=== PATIENT | male | born 1960 | race Caucasian/White ===

== ENCOUNTER 2017-02-19 18:44 | Observation (INO) | payer OTHER ==
[2017-02-19 18:55] VITALS: BMI 21.7
[2017-02-19] MEDS ORDERED: HYDROmorphone HCL CARPU-JECT 1 MG/1 ML DISP.SYRIN IVPUSH ONE (20:12)
[2017-02-19] MEDS ORDERED: diazePAM 5 MG TABLET PO ONE (20:35)
[2017-02-19] MEDS ORDERED: MINERAL OIL ENEMA 133 ML ENEMA PR ONE (20:47)
--- NOTE | 2017-02-19 20:47 | PDOC ---
History of Present Illness - General Chief Complaint: Constipation Stated Complaint: CONSTIPATION Time Seen by Provider: 02/19/17 20:11 - History of Present Illness Initial Comments: 02/19/17 20:42 CHIEF COMPLAINT: constipation HISTORY OF PRESENT ILLNESS: 57 yo M with severe developmental disability, renal insufficiancy, iron deficiency anemia, redundant colon, gastric immobility, constipation, fecal impaction, and small bowel obstruction presents to ED from [facility] with fecal impaction. Per notes patient's aide at bedside, patient went for abdominal x-ray this morning and results indicate "distal fecal impaction with stool mixed with contrast. No free air. No sign of gross pneumatosis. Patient needs to get the retained contrast mixed with stool removed." Per [facility] notes, patient was evaluated at [facility] and discharged with a plan for fecal disimpaction with "fleet mineral oil enema followed by dulcolax suppository repeated once after 6 hours, then 1/2 gallon of golytely laxative solution. if tolerates this can complete th rest of the golytely the next day" on 02/13/17. PAST MEDICAL HISTORY: Denies past medical history FAMILY HISTORY: Denies SOCIAL HISTORY: Denies tobacco, alcohol, illicit drug use. SURGICAL HISTORY: Denies ALLERGIES: No known drug allergies REVIEW OF SYSTEMS - Patient nonverbal, unable to conduct PHYSICAL EXAM General Appearance: Well-appearing, appropriately dressed. No apparent distress. HEENT: EOMI, PERRLA, normal ENT inspection, normal voice, TMs normal, pharynx normal. No conjunctival pallor. No photophobia, scleral icterus. Neck: Supple. Trachea midline. No tenderness, rigidity, carotid bruit, stridor , lymphadenopathy, or thyromegaly. Respiratory/Chest: Lungs CTAB. No shortness of breath, chest tenderness, respiratory distress, accessory muscle use. No crackles, rales, rhonchi, stridor , wheezing, dullness Cardiovascular: RRR. S1, S2. Gastrointestinal/Abdominal: Normal bowel sounds. Abdomen soft, non-distended. No tenderness or rebound tenderness. No organomegaly, pulsatile mass, guarding , hernia, hepatomegaly, splenomegaly. Rectal Exam: Large fecal bolus to rectal vault. Small flecks of dark, hard green stool to diaper. No gross blood appreciated. Musculoskeletal/Extremities: Normal inspection. FROM of all extremities, normal capillary refill. Pelvis Stable. No CVA tenderness. No tenderness to extremities, pedal edema, swelling, erythema or deformity. Integumentary: Appropriate color, dry, warm. 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 Fully oriented, alert. Appropriate mood/affect. Motor strength 5/5. No appreciable EOM palsy, facial droop or sensory deficit. 02/20/17 00:37 Past History - Past Medical History Allergies/Adverse Reactions: Allergies Allergy/AdvReac Type Severity Reaction Status Date / Time No Known Drug Allergies Allergy Verified 02/19/17 18:55 Home Medications: Ambulatory Orders Alprazolam 0.5 mg PO TID #15 tablet 08/06/15 Ascorbic Acid [Vitamin C] 500 mg PO DAILY 08/06/15 Calcitriol [Calcitriol -] 2 capsule PO DAILY capsule 08/06/15 Docusate Sodium [Colace] 300 mg PO HS capsule 08/06/15 Folic Acid 1 mg PO DAILY tablet 08/06/15 Furosemide 40 mg PO DAILY #30 08/06/15 Lactulose 20 gm PO DAILY 08/06/15 Lamotrigine [Lamotrigine ER] 200 mg PO DAILY 08/06/15 Levetiracetam [Keppra] 500 mg PO DAILY tablet 08/06/15 Lorazepam 2 mg PO po 08/06/15 Na Phos,M-B/Na Phos,Di-Ba [Fleet Enema] 118 ml RC PRN 08/06/15 Omeprazole Magnesium 20 mg PO DAILY #30 08/06/15 Quetiapine Fumarate 300 mg PO AM tablet 08/06/15 Quetiapine Fumarate 400 mg PO HS tablet 08/06/15 Sennosides [Senna] 8.6 mg PO DAILY capsule 08/06/15 Zonisamide 100 mg PO DAILY capsule 08/06/15 Anemia: (AZOTEMIA) GI Disorders: Yes (CONSTIPATION) Disorders: Yes (RENAL INSUFFICIENY) Seizures: Yes Other medical history: INTELECTUAL DEVELOPMENT DELAY, PRESBYOPIA - Suicide/Smoking/Psychosocial Hx Smoking History: Never smoked Hx Alcohol Use: No Drug/Substance Use Hx: No Substance Use Type: None *Physical Exam - Vital Signs Last Vital Signs Temp Pulse Resp BP Pulse Ox 97.9 F 75 16 121/53 95 02/19/17 18:48 02/19/17 18:48 02/19/17 18:48 02/19/17 18:48 02/19/17 18:48 Medical Decision Making - Medical Decision Making 02/19/17 22:55 57 yo M with severe developmental disability, renal insufficiency, iron deficiency anemia, redundant colon, gastric immobility, constipation, fecal impaction, and small bowel obstruction presents to ED from [facility] with fecal impaction. -Digital/manual disimpaction attempted - large bolus of fecal matter appreciated but unable to remove or break up any pieces -2 saline enemas administered and patient placed on commode, patient unable to follow instructions to push as he is nonverbal and delayed Patient will require more aggressive disimpaction. Discussed case with patient' s PCP Tom, will admit to inpatient services for GI consult. Per Dr. Santos's request, discussed case with GI MD Carl (sleeve ironer for Lansylvia) . Will give oral lactulose. *DC/Admit/Observation/Transfer Diagnosis at time of Disposition: Fecal impaction in rectum - Discharge Dispostion Admit: Yes - Referrals Referrals: Nora Santos MD [Primary Care Provider] -
[2017-02-19] MEDS ORDERED: diazePAM 5 MG TABLET ONE (20:56)
[2017-02-19] MEDS ORDERED: LACTULOSE 20 GM/30 ML UDC (FOR ORAL USE ONLY) PO ONE (23:53)
[2017-02-20] MEDS ORDERED: LACTULOSE 20 GM/30 ML UDC (FOR ORAL USE ONLY) ONE (01:45)
[2017-02-20 02:33] LABS: MCH 33.3 pg (25.7-33.7); MCHC 33.1 g/dl (32.0-35.9); MEAN CELL VOLUME 100.6 fl (80-96); MEAN PLT VOLUME 9.7 fl (7.5-11.1); PLATELET COUNT 184 K/MM3 (134-434); RDW 13.6 % (11.9-15.9); WHITE BLOOD COUNT 14.4 K/mm3 (4.0-10.0)
[2017-02-20 02:50] LABS: INR 1.1 (0.82-1.09); PROTHROMBIN TIME (PATIENT) 12.4 SEC (9.98-11.88)
[2017-02-20 03:03] LABS: ALBUMIN 3.6 g/dl (3.4-5.0); ANION GAP 15 (8-16); CALCIUM 8.9 mg/dL (8.5-10.1); CO2 21 mmol/L (21-32); CREATININE 2.3 mg/dL (0.7-1.3); GLUCOSE,RANDOM 163 mg/dL (74-106); SGOT/AST 15 U/L (15-37); SGPT/ALT 17 U/L (12-78)
[2017-02-20 03:04] LABS: ALK PHOS 140 U/L (45-117); TOT PROT 7.1 g/dl (6.4-8.2)
[2017-02-20 07:18] LABS: TOTAL CELLS COUNTED 100
[2017-02-20] MEDS ORDERED: MINERAL OIL ENEMA 133 ML ENEMA PR ONE (10:24)
[2017-02-20] MEDS: POLYETHYLENE GLYCOL 3350 119 GM BTL PO SCH ×2 (11:50→21:13)
--- NOTE | 2017-02-20 12:50 | HP ---
Admitting History and Physical - Primary Care Physician PCP: Nora Santos - Admission Chief Complaint: abdominal pain History of Present Illness: ER HISTORY - History of Present Illness Initial Comments: 02/19/17 20:42 CHIEF COMPLAINT: constipation HISTORY OF PRESENT ILLNESS: 57 yo M with severe developmental disability, renal insufficiency, iron deficiency anemia, redundant colon, gastric immobility, constipation, fecal impaction, and small bowel obstruction presents to ED from [facility] with fecal impaction. Per notes patient's aide at bedside, patient went for abdominal x-ray this morning and results indicate "distal fecal impaction with stool mixed with contrast. No free air. No sign of gross pneumatosis. Patient needs to get the retained contrast mixed with stool removed." Per [facility] notes, patient was evaluated at [facility] and discharged with a plan for fecal disimpaction with "fleet mineral oil enema followed by dulcolax suppository repeated once after 6 hours, then 1/2 gallon of golytely laxative solution. if tolerates this can complete th rest of the golytely the next day" on 02/13/17. PAST MEDICAL HISTORY: Denies past medical history FAMILY HISTORY: Denies SOCIAL HISTORY: Denies tobacco, alcohol, illicit drug use. SURGICAL HISTORY: Denies Pt seen and examined Severe mental retardation, has episodes of fecal impaction. Had been disimpacted in ER, but still has stool in vault per ER . Pt kept NPO here in ER . 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, Other (mental retardation) Renal/: Yes: Renal Inusuff - Smoking History Smoking history: Never smoked - Alcohol/Substance Use Hx Alcohol Use: No Home Medications - Allergies Allergies/Adverse Reactions: Allergies Allergy/AdvReac Type Severity Reaction Status Date / Time No Known Drug Allergies Allergy Verified 02/19/17 18:55 - Home Medications Home Medications: Ambulatory Orders Ascorbic Acid [Vitamin C] 500 mg PO DAILY 08/06/15 Calcitriol [Calcitriol -] 2 capsule PO DAILY capsule 08/06/15 Docusate Sodium [Colace] 300 mg PO HS capsule 08/06/15 Lactulose 2 tbs PO DAILY 08/06/15 Lamotrigine [Lamotrigine ER] 200 mg PO BID 08/06/15 Levetiracetam [Keppra] 500 mg PO BID tablet 08/06/15 Lorazepam 2 mg PO ASDIR 08/06/15 Na Phos,M-B/Na Phos,Di-Ba [Fleet Enema] 118 ml RC PRN 08/06/15 Omeprazole Magnesium 20 mg PO DAILY #30 08/06/15 Quetiapine Fumarate 300 mg PO AM tablet 08/06/15 Quetiapine Fumarate 400 mg PO HS tablet 08/06/15 Folic Acid 1 mg PO DAILY 02/20/17 Zonisamide [Zonegran] 100 mg PO BID 02/20/17 Review of Systems Unable to obtain ROS, reason: mental retardation Physical Examination Vital Signs: Vital Signs Temperature 97.9 F 02/19/17 18:48 Pulse Rate 75 02/19/17 18:48 Respiratory Rate 16 02/19/17 18:48 Blood Pressure 121/53 02/19/17 18:48 O2 Sat by Pulse Oximetry (%) 96 02/19/17 21:50 Constitutional: Yes: No Distress Cardiovascular: Yes: Regular Rate and Rhythm Respiratory: Yes: CTA Bilaterally Gastrointestinal: Yes: Normal Bowel Sounds, Soft, Distention, Tenderness Edema: No Psychiatric: Yes: Alert Labs: CBC, BMP 02/20/17 02:23 02/20/17 02:23 Imaging - Results EKG: Image Reviewed (NSR) Problem List - Problems (1) Acute on chronic renal failure Code(s): N17.9 - ACUTE KIDNEY FAILURE, UNSPECIFIED N18.9 - CHRONIC KIDNEY DISEASE, UNSPECIFIED Qualifiers: Chronic kidney disease stage: stage 3 (moderate) (2) Epilepsy Code(s): G40.909 - EPILEPSY, UNSP, NOT INTRACTABLE, WITHOUT STATUS EPILEPTICUS (3) Fecal impaction in rectum Code(s): K56.41 - FECAL IMPACTION (4) Profound mental retardation Code(s): F73 - PROFOUND INTELLECTUAL DISABILITIES Assessment/Plan Fleet enema lactulase and miralax ordered Dulcolax suppository x 1 iv fluids may have regular food after bm keep NPO for now DVT prophlaxis-- Heparin sc
[2017-02-20] MEDS: LACTULOSE 20 GM/30 ML UDC (FOR ORAL USE ONLY) PO SCH (14:53)
[2017-02-20] MEDS: levETIRAcetam 500 MG TABLET (FP) PO SCH ×2 (14:54→21:11)
[2017-02-20] MEDS: ZONISAMIDE 100 MG CAPSULE PO SCH ×2 (14:55→21:13)
[2017-02-20] MEDS: DEXTROSE 5%-0.45% SALINE 1,000 ML IV SCH (20:15)
[2017-02-20] MEDS ORDERED: PT OWN MED DRAWER 7, Y5N ONE (21:03)
[2017-02-20] MEDS: DOCUSATE SODIUM 100 MG CAPSULE (FP) PO SCH (21:10)
[2017-02-20] MEDS: LORazepam 1 MG TABLET PO PRN (21:11)
[2017-02-20] MEDS: lamoTRIgine 100 MG TABLET (FP) PO SCH (21:12)
[2017-02-20] MEDS ORDERED: QUEtiapine FUMARATE 400 MG TABLET PO SCH (22:00)
[2017-02-21] MEDS: QUEtiapine FUMARATE 100 MG TABLET (FP) PO SCH (06:28)
[2017-02-21] MEDS ORDERED: QUEtiapine FUMARATE 300 MG TABLET PO SCH (07:00)
[2017-02-21 08:21] LABS: ANION GAP 11 (8-16); CALCIUM 8.6 mg/dL (8.5-10.1); CO2 25 mmol/L (21-32); CREATININE 1.6 mg/dL (0.7-1.3); GLUCOSE,RANDOM 109 mg/dL (74-106)
[2017-02-21] MEDS ORDERED: PT OWN MED DRAWER 7, Y5N ONE (09:54)
[2017-02-21] MEDS: LACTULOSE 20 GM/30 ML UDC (FOR ORAL USE ONLY) PO SCH (10:14)
[2017-02-21] MEDS: ASCORBIC ACID 500 MG TABLET (FP) PO SCH (10:15)
[2017-02-21] MEDS: CALCITRIOL 0.25 MCG CAPSULE (FP) PO SCH (10:15)
[2017-02-21] MEDS: levETIRAcetam 500 MG TABLET (FP) PO SCH ×2 (10:15→21:45)
[2017-02-21] MEDS: lamoTRIgine 100 MG TABLET (FP) PO SCH ×2 (10:15→21:45)
[2017-02-21] MEDS: ZONISAMIDE 100 MG CAPSULE PO SCH ×2 (10:16→21:47)
[2017-02-21] MEDS: DEXTROSE 5%-0.45% SALINE 1,000 ML IV SCH ×2 (10:25→21:43)
[2017-02-21] MEDS: POLYETHYLENE GLYCOL 3350 119 GM BTL PO SCH ×2 (12:51→21:46)
--- NOTE | 2017-02-21 12:52 | PN ---
Progress Note, Physician Chief Complaint: pt had a big bowel movement this AM He is sitting out in the ng eating fine does not appear to be in distress - Current Medication List Current Medications: Active Medications Ascorbic Acid (Vitamin C -) 500 mg PO DAILY [facility] Last Admin: 02/21/17 10:15 Dose: 500 mg Calcitriol (Rocaltrol -) 0.5 mcg PO DAILY [facility] Last Admin: 02/21/17 10:15 Dose: 0.5 mcg Docusate Sodium (Colace -) 300 mg PO HS [facility] Last Admin: 02/20/17 21:10 Dose: 300 mg Dextrose/Sodium Chloride (D5-1/2ns -) 1,000 mls @ 75 mls/hr IV ASDIR [facility] Last Admin: 02/21/17 10:25 Dose: 75 mls/hr Lactulose (Cephulac (Oral Use)) 20 gm PO DAILY [facility] Last Admin: 02/21/17 10:14 Dose: 20 gm Lamotrigine (Lamictal -) 200 mg PO BID [facility] Last Admin: 02/21/17 10:15 Dose: 200 mg Levetiracetam (Keppra -) 500 mg PO BID [facility] Last Admin: 02/21/17 10:15 Dose: 500 mg Lorazepam (Ativan -) 2 mg PO TID PRN PRN Reason: ANXIETY Last Admin: 02/20/17 21:11 Dose: 2 mg Polyethylene Glycol (Miralax (For Daily Use) -) 17 gm PO BID [facility] Last Admin: 02/20/17 21:13 Dose: 17 grams Quetiapine Fumarate (Seroquel -) 300 mg PO AM [facility] Last Admin: 02/21/17 06:28 Dose: 300 mg Quetiapine Fumarate (Seroquel -) 400 mg PO HS [facility] Zonisamide (Zonegran -) 100 mg PO BID [facility] Last Admin: 02/21/17 10:16 Dose: 100 mg - Objective Vital Signs: Vital Signs Temperature 98.5 F 02/21/17 06:18 Pulse Rate 95 H 02/21/17 06:18 Respiratory Rate 20 02/21/17 06:18 Blood Pressure 127/85 02/21/17 06:18 O2 Sat by Pulse Oximetry (%) 98 02/21/17 07:20 Constitutional: Yes: No Distress Cardiovascular: Yes: Regular Rate and Rhythm Respiratory: Yes: CTA Bilaterally Gastrointestinal: Yes: Normal Bowel Sounds, Soft, Distention, Tenderness (mild diffuse) Edema: No Psychiatric: Yes: Alert. No: Oriented Labs: CBC, BMP 02/20/17 02:23 02/21/17 06:00 INR, PTT INR 1.10 (0.82-1.09) 02/20/17 02:23 Problem List - Problems (1) Fecal impaction in rectum Code(s): K56.41 - FECAL IMPACTION (2) Profound mental retardation Code(s): F73 - PROFOUND INTELLECTUAL DISABILITIES (3) Epilepsy Code(s): G40.909 - EPILEPSY, UNSP, NOT INTRACTABLE, WITHOUT STATUS EPILEPTICUS (4) Acute on chronic renal failure Code(s): N17.9 - ACUTE KIDNEY FAILURE, UNSPECIFIED N18.9 - CHRONIC KIDNEY DISEASE, UNSPECIFIED Qualifiers: Chronic kidney disease stage: stage 3 (moderate) Assessment/Plan PLAN continue with stool softeners iv fluids creatinine better soap suds enema DVT prophylaxis-- heparin sc
[2017-02-21] MEDS ORDERED: SENNOSIDES 8.6MG TABLET (FP) PO PRN (12:53)
[2017-02-21] MEDS ORDERED: SODIUM PHOSPHATE/NA BIPHOS 133 ML ENEMA PR ONE ×2 (19:06)
--- NOTE | 2017-02-21 19:15 | CON.GI ---
Consult Consult Specialty:: consult Referred by:: Sindi Escobar md - History of Present Illness History of Present Illness: HISTORY OF PRESENT ILLNESS: 57 yo M with severe developmental disability, renal insufficiency, iron deficiency anemia, redundant colon, gastric immobility, constipation, fecal impaction, and small bowel obstruction presents to ED from [facility] with fecal impaction. Per notes patient's aide at bedside, patient went for abdominal x-ray this morning and results indicate "distal fecal impaction with stool mixed with contrast. No free air. No sign of gross pneumatosis. Patient needs to get the retained contrast mixed with stool removed." Per [facility] notes, patient was evaluated at [facility] and discharged with a plan for fecal disimpaction with "fleet mineral oil enema followed by dulcolax suppository repeated once after 6 hours, then 1/2 gallon of golytely laxative solution. if tolerates this can complete th rest of the golytely the next day" on 02/13/17. The FUA was reviewed and the patien was noted to have severe fecal impaction. 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 (mental retardation) Renal/: Yes: Renal Inusuff - Alcohol/Substance Use Hx Alcohol Use: No - Smoking History Smoking history: Never smoked Home Medications - Allergies Allergies/Adverse Reactions: Allergies Allergy/AdvReac Type Severity Reaction Status Date / Time No Known Drug Allergies Allergy Verified 02/19/17 18:55 - Home Medications Home Medications: Ambulatory Orders Ascorbic Acid [Vitamin C] 500 mg PO DAILY 08/06/15 Calcitriol [Calcitriol -] 2 capsule PO DAILY capsule 08/06/15 Docusate Sodium [Colace] 300 mg PO HS capsule 08/06/15 Lactulose 2 tbs PO DAILY 08/06/15 Lamotrigine [Lamotrigine ER] 200 mg PO BID 08/06/15 Levetiracetam [Keppra] 500 mg PO BID tablet 08/06/15 Lorazepam 2 mg PO ASDIR 08/06/15 Na Phos,M-B/Na Phos,Di-Ba [Fleet Enema] 118 ml RC PRN 08/06/15 Omeprazole Magnesium 20 mg PO DAILY #30 08/06/15 Quetiapine Fumarate 300 mg PO AM tablet 08/06/15 Quetiapine Fumarate 400 mg PO HS tablet 08/06/15 Folic Acid 1 mg PO DAILY 02/20/17 Zonisamide [Zonegran] 100 mg PO BID 02/20/17 Physical Exam-GI Vital Signs: Vital Signs Temperature 97.5 F L 02/21/17 15:36 Pulse Rate 104 H 02/21/17 15:36 Respiratory Rate 18 02/21/17 15:36 Blood Pressure 117/73 02/21/17 15:36 O2 Sat by Pulse Oximetry (%) 95 02/21/17 15:00 Constitutional: Yes: Well Nourished Eyes: Yes: Conjunctiva Clear HENT: Yes: Atraumatic Cardiovascular: Yes: Regular Rate and Rhythm Respiratory: Yes: CTA Bilaterally Gastrointestinal Inspection: Yes: Distention ...Palpate: Yes: Soft. No: Firm/Rigid, Guarding, Hepatomegaly, Pulsatile Mass, Splenomegaly, Tenderness, Epigastium ...Rectal Exam: Yes: Other (fecal impaction, disimpacted, 4 fleet enemas given) Labs: CBC, BMP 02/20/17 02:23 02/21/17 06:00 INR, PTT INR 1.10 (0.82-1.09) 02/20/17 02:23 Imaging - Results Chest X-ray: Image Reviewed Problem List - Problems (1) Fecal impaction in rectum Assessment/Plan: R> continus fleet enemas to prevent small owel obstruction Code(s): K56.41 - FECAL IMPACTION
[2017-02-21] MEDS: LORazepam 1 MG TABLET PO PRN (21:44)
[2017-02-21] MEDS: DOCUSATE SODIUM 100 MG CAPSULE (FP) PO SCH (21:44)
[2017-02-21] MEDS: QUEtiapine FUMARATE 200 MG TABLET PO SCH (21:46)
[2017-02-22] MEDS: QUEtiapine FUMARATE 100 MG TABLET (FP) PO SCH (06:20)
[2017-02-22] MEDS ORDERED: PT OWN MED DRAWER 7, Y5N ONE ×2 (06:48→10:40)
[2017-02-22 08:47] LABS: MCH 32.9 pg (25.7-33.7); MCHC 33.1 g/dl (32.0-35.9); MEAN CELL VOLUME 99.5 fl (80-96); MEAN PLT VOLUME 9.9 fl (7.5-11.1); PLATELET COUNT 157 K/MM3 (134-434)
[2017-02-22 09:12] LABS: ANION GAP 7 (8-16); CALCIUM 8.2 mg/dL (8.5-10.1); CO2 27 mmol/L (21-32); CREATININE 1.7 mg/dL (0.7-1.3); GLUCOSE,RANDOM 94 mg/dL (74-106)
[2017-02-22] MEDS: LACTULOSE 20 GM/30 ML UDC (FOR ORAL USE ONLY) PO SCH (10:43)
[2017-02-22] MEDS: POLYETHYLENE GLYCOL 3350 119 GM BTL PO SCH ×2 (10:43→22:01)
[2017-02-22] MEDS: ASCORBIC ACID 500 MG TABLET (FP) PO SCH (10:43)
[2017-02-22] MEDS: CALCITRIOL 0.25 MCG CAPSULE (FP) PO SCH (10:43)
[2017-02-22] MEDS: levETIRAcetam 500 MG TABLET (FP) PO SCH ×2 (10:43→22:01)
[2017-02-22] MEDS: lamoTRIgine 100 MG TABLET (FP) PO SCH ×2 (10:44→22:01)
[2017-02-22] MEDS: ZONISAMIDE 100 MG CAPSULE PO SCH ×2 (10:45→22:02)
--- NOTE | 2017-02-22 11:19 | PN ---
Progress Note (short form) - Note Progress Note: Current Medications no distress happy eating good had 2 big bm yesterday and 1 today Generic Name Dose Route Start Last Admin Trade Name Freq PRN Reason Stop Dose Admin Ascorbic Acid 500 mg 02/21/17 10:00 02/22/17 10:43 Vitamin C - PO 500 mg DAILY [facility] Administration Calcitriol 0.5 mcg 02/21/17 10:00 02/22/17 10:43 Rocaltrol - PO 0.5 mcg DAILY [facility] Administration Docusate Sodium 300 mg 02/20/17 22:00 02/21/17 21:44 Colace - PO 300 mg HS [facility] Administration Lactulose 20 gm 02/20/17 11:30 02/22/17 10:43 Cephulac (Oral Use) PO 20 gm DAILY [facility] Administration Lamotrigine 200 mg 02/20/17 22:00 02/22/17 10:44 Lamictal - PO 200 mg BID [facility] Administration Levetiracetam 500 mg 02/20/17 11:30 02/22/17 10:43 Keppra - PO 500 mg BID [facility] Administration Lorazepam 2 mg 02/20/17 10:21 02/21/17 21:44 Ativan - PO 2 mg TID PRN Administration ANXIETY Polyethylene Glycol 17 gm 02/20/17 10:30 02/22/17 10:43 Miralax (For Daily Use) - PO 17 grams BID [facility] Administration Quetiapine Fumarate 300 mg 02/21/17 07:00 02/22/17 06:20 Seroquel - PO 300 mg AM [facility] Administration Quetiapine Fumarate 400 mg 02/21/17 22:00 02/21/17 21:46 Seroquel - PO 400 mg HS [facility] Administration Senna 2 tab 02/21/17 12:53 Senna - PO HS PRN CONSTIPATION Zonisamide 100 mg 02/20/17 12:00 02/22/17 10:45 Zonegran - PO 100 mg BID [facility] Administration Vital Signs - 24 hr 02/21/17 02/21/17 02/21/17 15:00 15:36 18:00 Temperature 97.5 F L 97.5 F L Pulse Rate 104 H 96 H Respiratory 18 18 18 Rate Blood Pressure 117/73 122/82 O2 Sat by Pulse 95 Oximetry (%) 02/21/17 02/21/17 02/22/17 22:00 23:00 02:00 Temperature 98.7 F 97.9 F Pulse Rate 98 H 99 H Respiratory 18 18 18 Rate Blood Pressure 118/82 125/80 O2 Sat by Pulse 95 Oximetry (%) 02/22/17 02/22/17 02/22/17 05:40 06:55 10:00 Temperature 97.6 F 98.1 F 98.1 F Pulse Rate 94 H 93 H 92 H Respiratory 18 20 20 Rate Blood Pressure 121/83 139/78 129/79 O2 Sat by Pulse 98 Oximetry (%) Laboratory Results - last 24 hr 02/22/17 02/22/17 06:00 06:00 WBC 7.0 D RBC 3.47 L Hgb 11.4 L D Hct 34.6 L MCV 99.5 H MCH 32.9 MCHC 33.1 RDW 13.0 Plt Count 157 MPV 9.9 Sodium 145 Potassium 3.5 Chloride 111 H Carbon Dioxide 27 Anion Gap 7 L BUN 34 H D Creatinine 1.7 H Random Glucose 94 Calcium 8.2 L S1 S2 RRR Lungs clear ABd- softer today, ND, NT no edema PLAN GI eval noted disimpacted yesterday as well by GI having BM no vomiting Xray abdomen pending dc plan for tomorrow Problem List - Problems (1) Acute on chronic renal failure Code(s): N17.9 - ACUTE KIDNEY FAILURE, UNSPECIFIED N18.9 - CHRONIC KIDNEY DISEASE, UNSPECIFIED Qualifiers: Chronic kidney disease stage: stage 3 (moderate) (2) Epilepsy Code(s): G40.909 - EPILEPSY, UNSP, NOT INTRACTABLE, WITHOUT STATUS EPILEPTICUS (3) Fecal impaction in rectum Code(s): K56.41 - FECAL IMPACTION (4) Profound mental retardation Code(s): F73 - PROFOUND INTELLECTUAL DISABILITIES
[2017-02-22] MEDS ORDERED: SODIUM PHOSPHATE/NA BIPHOS 133 ML ENEMA PR ONE (18:13)
[2017-02-22] MEDS: SODIUM PHOSPHATE/NA BIPHOS 133 ML ENEMA PR SCH (20:00)
[2017-02-22] MEDS: DOCUSATE SODIUM 100 MG CAPSULE (FP) PO SCH (22:00)
[2017-02-22] MEDS: LORazepam 1 MG TABLET PO PRN (22:01)
[2017-02-22] MEDS: QUEtiapine FUMARATE 200 MG TABLET PO SCH (22:01)
[2017-02-23] MEDS: SODIUM PHOSPHATE/NA BIPHOS 133 ML ENEMA PR SCH ×5 (01:02→16:53)
[2017-02-23] MEDS ORDERED: PT OWN MED DRAWER 7, Y5N ONE ×2 (06:22→10:35)
[2017-02-23] MEDS: QUEtiapine FUMARATE 100 MG TABLET (FP) PO SCH (06:42)
--- NOTE | 2017-02-23 08:42 | PN ---
Progress Note (short form) - Note Progress Note: pt sitting in chair comfortable chart reviewed had bm - still abd distended fua - noted- significant stool/ impaction Vital Signs Temp 97.9 F 02/23/17 05:00 Pulse 86 02/23/17 05:00 Resp 18 02/23/17 05:00 BP 116/75 02/23/17 05:00 Pulse Ox 98 02/23/17 05:54 Intake & Output 02/22/17 02/22/17 02/23/17 11:59 23:59 11:59 Intake Total 650 1600 400 Balance 650 1600 400 Intake: IV 450 D5-1/2Ns - 1,000 ml @ 75 450 mls/hr IV ASDIR [facility] Rx#: [id number] Oral 200 1600 400 Other: Voiding Method Incontinent Incontinent Incontinent # Unmeasured Voids Void 1 3 Bowel Movement Yes Yes Yes # Bowel Movements 2 2 4 Laboratory Last Values WBC 7.0 K/mm3 (4.0-10.0) D 02/22/17 06:00 RBC 3.47 M/mm3 (4.00-5.60) L 02/22/17 06:00 Hgb 11.4 GM/dL (11.7-16.9) L D 02/22/17 06:00 Hct 34.6 % (35.4-49) L 02/22/17 06:00 MCV 99.5 fl (80-96) H 02/22/17 06:00 MCH 32.9 pg (25.7-33.7) 02/22/17 06:00 MCHC 33.1 g/dl (32.0-35.9) 02/22/17 06:00 RDW 13.0 % (11.9-15.9) 02/22/17 06:00 Plt Count 157 K/MM3 (134-434) 02/22/17 06:00 MPV 9.9 fl (7.5-11.1) 02/22/17 06:00 Total Counted 100 02/20/17 02:23 Neutrophils % 83.0 % (42.8-82.8) H 02/20/17 02:23 Band Neuts % (Manual) 6 % (0-10) 02/20/17 02:23 Lymphocytes % 6.0 % (8-40) L 02/20/17 02:23 Monocytes % 5.0 % (3.8-10.2) 02/20/17 02:23 PT with INR 12.40 SEC (9.98-11.88) H 02/20/17 02:23 INR 1.10 (0.82-1.09) 02/20/17 02:23 PTT (Actin FS) 29.6 SECONDS (26.9-34.4) 02/20/17 02:23 Sodium 145 mmol/L (136-145) 02/22/17 06:00 Potassium 3.5 mmol/L (3.5-5.1) 02/22/17 06:00 Chloride 111 mmol/L (98-107) H 02/22/17 06:00 Carbon Dioxide 27 mmol/L (21-32) 02/22/17 06:00 Anion Gap 7 (8-16) L 02/22/17 06:00 BUN 34 mg/dL (7-18) H D 02/22/17 06:00 Creatinine 1.7 mg/dL (0.7-1.3) H 02/22/17 06:00 Creat Clearance w eGFR 29.46 (>60) 02/20/17 02:23 Random Glucose 94 mg/dL (74-106) 02/22/17 06:00 Calcium 8.2 mg/dL (8.5-10.1) L 02/22/17 06:00 Total Bilirubin 1.0 mg/dL (0.2-1.0) D 02/20/17 02:23 AST 15 U/L (15-37) D 02/20/17 02:23 ALT 17 U/L (12-78) 02/20/17 02:23 Alkaline Phosphatase 140 U/L (45-117) H 02/20/17 02:23 Total Protein 7.1 g/dl (6.4-8.2) 02/20/17 02:23 Albumin 3.6 g/dl (3.4-5.0) 02/20/17 02:23 Stool Occult Blood Negative (NEGATIVE) 02/20/17 04:00 Blood Type O POSITIVE 02/20/17 04:00 Antibody Screen Negative 02/20/17 04:00 Active Medications Ascorbic Acid (Vitamin C -) 500 mg PO DAILY [facility] Last Admin: 02/22/17 10:43 Dose: 500 mg Calcitriol (Rocaltrol -) 0.5 mcg PO DAILY [facility] Last Admin: 02/22/17 10:43 Dose: 0.5 mcg Docusate Sodium (Colace -) 300 mg PO HS [facility] Last Admin: 02/22/17 22:00 Dose: 300 mg Lactulose (Cephulac (Oral Use)) 20 gm PO DAILY [facility] Last Admin: 02/22/17 10:43 Dose: 20 gm Lamotrigine (Lamictal -) 200 mg PO BID [facility] Last Admin: 02/22/17 22:01 Dose: 200 mg Levetiracetam (Keppra -) 500 mg PO BID [facility] Last Admin: 02/22/17 22:01 Dose: 500 mg Lorazepam (Ativan -) 2 mg PO TID PRN PRN Reason: ANXIETY Last Admin: 02/22/17 22:01 Dose: 2 mg Polyethylene Glycol (Miralax (For Daily Use) -) 17 gm PO BID [facility] Last Admin: 02/22/17 22:01 Dose: 17 grams Quetiapine Fumarate (Seroquel -) 300 mg PO AM [facility] Last Admin: 02/23/17 06:42 Dose: 300 mg Quetiapine Fumarate (Seroquel -) 400 mg PO HS [facility] Last Admin: 02/22/17 22:01 Dose: 400 mg Senna (Senna -) 2 tab PO HS PRN PRN Reason: CONSTIPATION Sodium Phosphate (Fleet Adult Rectal Enema -) 133 ml ND Q4H [facility] Stop: 02/23/17 16:01 Last Admin: 02/23/17 05:00 Dose: 133 ml Zonisamide (Zonegran -) 100 mg PO BID [facility] Last Admin: 02/22/17 22:02 Dose: 100 mg Physical Exam, Awake/ comfortable S1 S2 RRR Lungs clear ABd- form no edema PLAN Continue Aggressive Regime today. monitor if better--dc plan for tomorrow . discussed with nursing staff/ case briefer. Need Aggressive bowel regime in senior living after discharge Problem List - Problems (1) Acute on chronic renal failure Code(s): N17.9 - ACUTE KIDNEY FAILURE, UNSPECIFIED N18.9 - CHRONIC KIDNEY DISEASE, UNSPECIFIED Qualifiers: Chronic kidney disease stage: stage 3 (moderate) (2) Epilepsy Code(s): G40.909 - EPILEPSY, UNSP, NOT INTRACTABLE, WITHOUT STATUS EPILEPTICUS (3) Fecal impaction in rectum Code(s): K56.41 - FECAL IMPACTION (4) Profound mental retardation Code(s): F73 - PROFOUND INTELLECTUAL DISABILITIES
[2017-02-23] MEDS: POLYETHYLENE GLYCOL 3350 119 GM BTL PO SCH ×2 (11:14→23:00)
[2017-02-23] MEDS: CALCITRIOL 0.25 MCG CAPSULE (FP) PO SCH (11:14)
[2017-02-23] MEDS: ASCORBIC ACID 500 MG TABLET (FP) PO SCH (11:14)
[2017-02-23] MEDS: levETIRAcetam 500 MG TABLET (FP) PO SCH ×2 (11:14→22:57)
[2017-02-23] MEDS: ZONISAMIDE 100 MG CAPSULE PO SCH ×2 (11:14→22:56)
[2017-02-23] MEDS: lamoTRIgine 100 MG TABLET (FP) PO SCH ×2 (11:14→22:57)
[2017-02-23] MEDS: LACTULOSE 20 GM/30 ML UDC (FOR ORAL USE ONLY) PO SCH (11:14)
--- NOTE | 2017-02-23 17:37 | PN ---
GI Progress Note Subjective: Patient appears comfortable Just disimpacted by his nurse Beverley. Significant amount of stool removed. - Objective Vital Signs: Vital Signs Temperature 96.8 F L 02/23/17 14:45 Pulse Rate 107 H 02/23/17 14:45 Respiratory Rate 18 02/23/17 14:45 Blood Pressure 137/87 02/23/17 14:45 O2 Sat by Pulse Oximetry (%) 98 02/23/17 05:54 Constitutional: Well Nourished Cardiovascular: Yes: Regular Rate and Rhythm Respiratory: Yes: CTA Bilaterally ...Auscultate: Yes: Normoactive Bowel Sounds ...Palpate: Yes: Soft Labs: CBC, BMP 02/22/17 06:00 02/22/17 06:00 INR, PTT INR 1.10 (0.82-1.09) 02/20/17 02:23 Assessment/Plan Abdomen decompressed. Large amount of stool removed and patient clinically improved. Would continue enemas for now and consider d/c if patient continues to improve He will need an aggressive bowel regimen as an opt including Miralax, dulcolax and enemas periodically
[2017-02-23] MEDS: DOCUSATE SODIUM 100 MG CAPSULE (FP) PO SCH (22:54)
[2017-02-23] MEDS: QUEtiapine FUMARATE 200 MG TABLET PO SCH (22:56)
[2017-02-24 04:49] VITALS: PULSE 101
[2017-02-24] MEDS: QUEtiapine FUMARATE 100 MG TABLET (FP) PO SCH (06:17)
[2017-02-24] MEDS ORDERED: PT OWN MED DRAWER 7, Y5N ONE (10:47)
--- NOTE | 2017-02-24 10:54 | DS ---
Physical Examination Vital Signs: Vital Signs Temperature 97.9 F 02/24/17 07:00 Pulse Rate 101 H 02/24/17 03:00 Respiratory Rate 20 02/24/17 07:00 Blood Pressure 120/73 02/24/17 07:00 O2 Sat by Pulse Oximetry (%) 97 02/23/17 15:00 Constitutional: Yes: No Distress, Calm Cardiovascular: Yes: Regular Rate and Rhythm Respiratory: Yes: CTA Bilaterally Gastrointestinal: Yes: Normal Bowel Sounds, Soft. No: Distention, Tenderness Edema: No Labs: CBC, BMP 02/22/17 06:00 02/22/17 06:00 Discharge Summary Reason For Visit: FECAL IMPACTION IN RECTUM Current Active Problems Acute on chronic renal failure (Acute) Epilepsy (Acute) Fecal impaction in rectum (Acute) Profound mental retardation (Acute) Hospital Course: Admitted for fecal impaction No vomiting acute on chronic renal failure Pt was on IV fluids He was disimpacted in ER and also on the floors by GI As per GI, he will need a continuous bowel regimen He is now moving his bowels meds reconciled no distress abdomen is now soft clinically better stable for discharge Condition: Improved - Instructions Referrals: Nora Santos MD [Primary Care Provider] - Disposition: [facility] - Home Medications Comprehensive Discharge Medication List: Ambulatory Orders Ascorbic Acid [Vitamin C] 500 mg PO DAILY 08/06/15 Calcitriol [Calcitriol -] 2 capsule PO DAILY capsule 08/06/15 Docusate Sodium [Colace] 300 mg PO HS capsule 08/06/15 Lactulose 2 tbs PO DAILY 08/06/15 Lamotrigine [Lamotrigine ER] 200 mg PO BID 08/06/15 Levetiracetam [Keppra] 500 mg PO BID tablet 08/06/15 Lorazepam 2 mg PO ASDIR 08/06/15 Omeprazole Magnesium 20 mg PO DAILY #30 08/06/15 Quetiapine Fumarate 300 mg PO AM tablet 08/06/15 Quetiapine Fumarate 400 mg PO HS tablet 08/06/15 Folic Acid 1 mg PO DAILY 02/20/17 Zonisamide [Zonegran] 100 mg PO BID 02/20/17 Sennosides [Senna -] 2 tab PO HS PRN #90 tablet 02/22/17 Sodium Phosphate/Na Biphos [Fleet Adult Rectal Enema -] 133 ml DE BID #120 ml 10 /19/17
[2017-02-24] MEDS: CALCITRIOL 0.25 MCG CAPSULE (FP) PO SCH (11:22)
[2017-02-24] MEDS: ASCORBIC ACID 500 MG TABLET (FP) PO SCH (11:22)
[2017-02-24] MEDS: levETIRAcetam 500 MG TABLET (FP) PO SCH (11:22)
[2017-02-24] MEDS: POLYETHYLENE GLYCOL 3350 119 GM BTL PO SCH (11:22)
[2017-02-24] MEDS: LACTULOSE 20 GM/30 ML UDC (FOR ORAL USE ONLY) PO SCH (11:22)
[2017-02-24] MEDS: lamoTRIgine 100 MG TABLET (FP) PO SCH (11:22)
[2017-02-24] MEDS: ZONISAMIDE 100 MG CAPSULE PO SCH (11:22)
[2017-02-24 12:36] VITALS: BP 105/69; TEMP 98.4
== END 2017-02-24 13:53 ==
LOC: JER 18:44 → INTOOBSV 23:16 → JERBED 23:16 → J8W 02-20 16:31
PROVIDERS: ADMIT Internal Medicine; ATTEND Internal Medicine
DX: K56.41 Fecal impaction (principal); N17.9 Acute kidney failure, unspecified; N18.9 Chronic kidney disease, unspecified; G40.909 Epilepsy, unspecified, not intractable, without status epilepticus; F73 Profound intellectual disabilities; D50.9 Iron deficiency anemia, unspecified; Q43.8 Other specified congenital malformations of intestine; K59.8 Other specified functional intestinal disorders
CPT/HCPCS: 36415; 74000-TC; 74020-TC; 80048; 80053; 82272; 82728; 83540; 83550; 85025; 85027; 85610; 85730; 86850; 86900; 86901; 99284-25; G0378

== ENCOUNTER 2024-02-02 08:33 | Inpatient (IN) | payer OTHER ==
[2024-02-02] MEDS ORDERED: ACETAMINOPHEN INJECTION 100 ML ONE (09:23)
[2024-02-02] MEDS: ACETAMINOPHEN 1000 MG/100 ML BAG IVPB ONE (09:38)
[2024-02-02 10:03] LABS: VENOUS BASE EXCESS 2.1 mmol/L (-2-2); VENOUS O2 SATURATION 69.1 % (70-80); VENOUS PCO2 42.7 mmHg (38-52); VENOUS PH 7.418 (7.310-7.410)
[2024-02-02] MEDS ORDERED: VANCOMYCIN 1 GRAM (PRE-DOCKED) 1,000 MG/250 ML BAG IVPB ONE (10:20)
[2024-02-02] MEDS ORDERED: PIPERACILLIN/TAZOB 4.5 GM 4.5 GM/100 ML BAG IVPB ONE (10:20)
[2024-02-02 10:24] LABS: LACTIC ACID 3.8 mmol/L (0.4-2.0)
[2024-02-02 10:27] LABS: HEMATOCRIT 37.1 % (35.4-49); HEMOGLOBIN 11.8 GM/dL (11.7-16.9); INR 1.04 (0.83-1.09); MCH 34.5 pg (25.7-33.7); MCHC 31.8 g/dl (32.0-35.9); MEAN CELL VOLUME 108.5 fl (80-96); MEAN PLT VOLUME 10.8 fl (7.5-11.1); PLATELET COUNT 203 10^3/uL (134-434); PROTHROMBIN TIME (PATIENT) 11.9 SEC (9.7-13.0); RBC 3.42 M/mm3 (4.00-5.60); RDW 22.2 % (11.9-15.9); WHITE BLOOD COUNT 20.3 K/mm3 (4.0-10.0)
[2024-02-02] MEDS: LACTATED RINGERS SOLUTION 1000 ML INFUS.BAG IV ONE ×3 (10:28→12:09)
[2024-02-02 10:29] LABS: ACTIVATED PTT 25.1 SECONDS (25.2-36.5)
[2024-02-02 10:40] LABS: CHLORIDE 109 mmol/L (98-107); POTASSIUM 3.3 mmol/L (3.5-5.1); SODIUM 148 mmol/L (136-145)
[2024-02-02 10:42] LABS: ANION GAP 12 mmol/L (4-13); CALCIUM 9.3 mg/dL (8.5-10.1); CO2 28 mmol/L (21-32)
[2024-02-02 10:43] LABS: GLUCOSE,RANDOM 139 mg/dL (74-106)
[2024-02-02 10:45] LABS: SGPT/ALT 21 U/L (13-61)
[2024-02-02 10:46] LABS: CREATININE 3.6 mg/dL (0.55-1.3); SGOT/AST 112 U/L (15-37)
[2024-02-02 10:47] LABS: BILIRUBIN,TOTAL 0.3 mg/dL (0.2-1); TOT PROT 5.5 g/dl (6.4-8.2)
[2024-02-02 10:48] LABS: ALK PHOS 77 U/L (45-117)
[2024-02-02] MEDS: PIPERACILLIN/TAZOB 4.5 GM 4.5 GM in DEXTROSE 5%-WATER 100 ML IVPB ONE (10:53)
[2024-02-02 11:01] LABS: ALBUMIN 1.5 g/dl (3.4-5.0); BLOOD UREA NITROGEN 113.9 mg/dL (7-18)
[2024-02-02] MEDS: VANCOMYCIN 1,000 MG in DEXTROSE 5%-WATER - 250 ML IVPB ONE (11:05)
[2024-02-02] MEDS: SODIUM CHLORIDE 0.9% 500 ML INFUS.BAG IV ONE (11:06)
[2024-02-02 11:50] LABS: ANISOCYTOSIS 1+; MACROCYTOSIS 1+
[2024-02-02 12:32] LABS: EPI CELLS 13 /uL (0-25.1); HYALINE CASTS 3 /uL (0-3.1); URINE APPEARANCE TURBID; URINE BACTERIA 2051 /uL (0-1359); URINE BILIRUBIN 1+ (NEGATIVE); URINE COLOR DK YELLOW; URINE GLUCOSE (UA) NEGATIVE (NEGATIVE); URINE KETONE TRACE (NEGATIVE); URINE LEUK ESTERASE 3+ (NEGATIVE); URINE NITRITE NEGATIVE (NEGATIVE); URINE PROTEIN 3+ (NEGATIVE); URINE WBC 2449 /uL (0-25.8)
[2024-02-02 13:27] LABS: URINE RBC 633 /uL (0-23.9); YEAST NONE SEEN (NEGATIVE)
[2024-02-02] MEDS: NOREPINEPHRINE BITARTRATE 4,000 MCG in DEXTROSE 5%-WATER - 496 ML IV SCH (14:21)
[2024-02-02] MEDS: LACTATED RINGERS SOLUTION 1,000 ML/1,000 ML INFUS.BAG IV SCH (14:21)
[2024-02-03 16:23] VITALS: BMI 23.2
[2024-02-03] MEDS: AMINO ACIDS 4.25%/D5W 1,000 ML IV SCH (20:41)
[2024-02-04] MEDS ORDERED: PIPERACILLIN/TAZOB 3.375 GM 3.375 GM in DEXTROSE 5%-WATER - 50 ML IVPB SCH (02:00)
[2024-02-04] MEDS: PIPERACILLIN/TAZOB 3.375 GM 3.375 GM in DEXTROSE 5%-WATER - 50 ML IVPB SCH ×2 (02:51→21:30)
[2024-02-04] MEDS ORDERED: CEFTRIAXONE 1 GM in DEXTROSE 5%-WATER - 50 ML IVPB SCH (16:15)
[2024-02-04 19:46] LABS: HEMATOCRIT 33.1 % (35.4-49); HEMOGLOBIN 10.3 GM/dL (11.7-16.9); MCH 33.9 pg (25.7-33.7); MCHC 31.1 g/dl (32.0-35.9); MEAN PLT VOLUME 10.4 fl (7.5-11.1); PLATELET COUNT 224 10^3/uL (134-434); RBC 3.04 M/mm3 (4.00-5.60); RDW 21.1 % (11.9-15.9)
[2024-02-04 20:02] LABS: CHLORIDE 108 mmol/L (98-107); POTASSIUM 3.2 mmol/L (3.5-5.1); SODIUM 146 mmol/L (136-145)
[2024-02-04 20:05] LABS: ALBUMIN 1.4 g/dl (3.4-5.0); ANION GAP 15 mmol/L (4-13); CO2 22 mmol/L (21-32); GLUCOSE,RANDOM 71 mg/dL (74-106)
[2024-02-04 20:06] LABS: BLOOD UREA NITROGEN 149.6 mg/dL (7-18)
[2024-02-04 20:07] LABS: WHITE BLOOD COUNT 31.4 K/mm3 (4.0-10.0)
[2024-02-04 20:08] LABS: CREATININE 4.7 mg/dL (0.55-1.3); SGOT/AST 52 U/L (15-37); SGPT/ALT 16 U/L (13-61)
[2024-02-04 20:10] LABS: BILIRUBIN,TOTAL 0.4 mg/dL (0.2-1); TOT PROT 4.9 g/dl (6.4-8.2)
[2024-02-04 20:11] LABS: ALK PHOS 91 U/L (45-117)
[2024-02-04 20:34] LABS: CALCIUM 8.2 mg/dL (8.5-10.1); PHOSPHOROUS 9.8 mg/dL (2.5-4.9)
[2024-02-05] MEDS ORDERED: PIPERACILLIN/TAZOB 3.375 GM 3.375 GM in DEXTROSE 5%-WATER - 50 ML IVPB SCH (02:00)
[2024-02-05 10:23] LABS: HEMATOCRIT 32.5 % (35.4-49); HEMOGLOBIN 10.5 GM/dL (11.7-16.9); MCHC 32.3 g/dl (32.0-35.9); MEAN CELL VOLUME 108.4 fl (80-96); PLATELET COUNT 216 10^3/uL (134-434); RDW 21.7 % (11.9-15.9); WHITE BLOOD COUNT 27.5 K/mm3 (4.0-10.0)
[2024-02-05] MEDS: GLUCAGON 1 MG KIT SQ ONE (10:44)
[2024-02-05 10:50] LABS: CHLORIDE 108 mmol/L (98-107); POTASSIUM 3.6 mmol/L (3.5-5.1); SODIUM 146 mmol/L (136-145)
[2024-02-05 10:52] LABS: ALBUMIN 1.5 g/dl (3.4-5.0); ANION GAP 16 mmol/L (4-13); CALCIUM 8.3 mg/dL (8.5-10.1); CO2 21 mmol/L (21-32)
[2024-02-05 10:54] LABS: MAGNESIUM 3.2 mg/dL (1.8-2.4)
[2024-02-05 10:55] LABS: SGOT/AST 51 U/L (15-37); SGPT/ALT 20 U/L (13-61)
[2024-02-05 10:56] LABS: CREATININE 4.8 mg/dL (0.55-1.3)
[2024-02-05 10:57] LABS: BILIRUBIN,TOTAL 0.4 mg/dL (0.2-1)
[2024-02-05 10:58] LABS: ALK PHOS 103 U/L (45-117)
[2024-02-05 11:45] LABS: GLUCOSE,RANDOM 74 mg/dL (74-106)
[2024-02-05 12:04] LABS: BLOOD UREA NITROGEN 146.9 mg/dL (7-18)
[2024-02-05] MEDS: SODIUM CHLORIDE 1,000 ML IV SCH (17:26)
[2024-02-05] MEDS: SODIUM CHLORIDE 1,000 ML IV STA (17:40)
[2024-02-05] MEDS ORDERED: VALPROATE SODIUM 250 MG/5 ML UNIT DOSE CUP GT SCH (17:45)
[2024-02-05] MEDS: MIDODRINE HCL 5 MG TABLET PO SCH (17:58)
[2024-02-05] MEDS: VALPROATE SODIUM 250 MG/5 ML UNIT DOSE CUP PO SCH (21:19)
[2024-02-05] MEDS ORDERED: lamoTRIgine 100 MG TABLET GT SCH (22:00)
[2024-02-05] MEDS: lamoTRIgine 100 MG TABLET PO SCH (22:18)
[2024-02-06] MEDS: MIDODRINE HCL 5 MG TABLET PO ONE ×2 (05:53→06:38)
[2024-02-06] MEDS: SODIUM CHLORIDE 1,000 ML IV STA (05:54)
[2024-02-06] MEDS ORDERED: DEXTROSE 50%-WATER 25 GM/50 ML DISP.SYRIN ONE ×2 (06:24→09:09)
[2024-02-06] MEDS ORDERED: NOREPINEPHRINE BITARTRATE 4 MG/4 ML ML IV ONE ×2 (07:41→20:36)
[2024-02-06] MEDS: NOREPINEPHRINE BITARTRATE 4,000 MCG in DEXTROSE 5%-WATER - 496 ML IV SCH ×2 (07:50→22:49)
[2024-02-06] MEDS ORDERED: ATROPINE SULFATE 1 MG/10 ML DISP.SYRIN ONE (07:53)
[2024-02-06] MEDS ORDERED: VASopressin 20 UNITS/ML VIAL IV ONE (07:54)
[2024-02-06] MEDS: ATROPINE SULFATE 1 MG/10 ML DISP.SYRIN IVPUSH ONE (08:02)
[2024-02-06] MEDS: VASopressin 40 UNITS/100 ML BAG IV SCH (08:20)
[2024-02-06] MEDS: DEXTROSE 50%-WATER 25 GM/50 ML DISP.SYRIN IVPUSH ONE (09:12)
[2024-02-06] MEDS: LEVOTHYROXINE NA 125 MCG TABLET (FP) GT SCH (09:42)
[2024-02-06 10:07] LABS: HEMATOCRIT 32.9 % (35.4-49); HEMOGLOBIN 10.3 GM/dL (11.7-16.9); MCH 34.9 pg (25.7-33.7); MCHC 31.2 g/dl (32.0-35.9); MEAN CELL VOLUME 111.9 fl (80-96); MEAN PLT VOLUME 10.2 fl (7.5-11.1); PLATELET COUNT 194 10^3/uL (134-434); RBC 2.94 M/mm3 (4.00-5.60); RDW 21.9 % (11.9-15.9); WHITE BLOOD COUNT 27.9 K/mm3 (4.0-10.0)
[2024-02-06] MEDS ORDERED: PHENYLEPHRINE HCL 10 MG/1 ML SINGLE DOSE VIAL ONE (10:23)
[2024-02-06 10:24] LABS: CHLORIDE 115 mmol/L (98-107); POTASSIUM 3.9 mmol/L (3.5-5.1); SODIUM 148 mmol/L (136-145)
[2024-02-06 10:27] LABS: ALBUMIN 1.5 g/dl (3.4-5.0); ANION GAP 17 mmol/L (4-13); BLOOD UREA NITROGEN 149.5 mg/dL (7-18); CALCIUM 7.2 mg/dL (8.5-10.1); CO2 17 mmol/L (21-32); GLUCOSE,RANDOM 194 mg/dL (74-106); MAGNESIUM 2.9 mg/dL (1.8-2.4)
[2024-02-06] MEDS: PHENYLEPHRINE NS PREMIX 50,000 MCG/500 ML BAG CVP SCH (10:27)
[2024-02-06 10:31] LABS: BILIRUBIN,TOTAL 0.4 mg/dL (0.2-1); CREATININE 4.7 mg/dL (0.55-1.3); SGOT/AST 42 U/L (15-37); SGPT/ALT 20 U/L (13-61)
[2024-02-06 10:33] LABS: ALK PHOS 108 U/L (45-117)
[2024-02-06 10:54] LABS: PHOSPHOROUS 8.6 mg/dL (2.5-4.9)
[2024-02-06] MEDS: MUPIROCIN 2% TOPICAL OINTMENT FOR DECOLONIZATION NS SCH (11:18)
[2024-02-06] MEDS: DOPAMINE 400 MG/D5W - 400,000 MCG/250 ML INFUS.BAG IVPB SCH (11:38)
[2024-02-06] MEDS: MIDODRINE HCL 5 MG TABLET PO SCH (17:47)
[2024-02-06] MEDS: CALCIUM CHLORIDE 10% 1 GM/10 ML *VIAL IVPUSH ONE (18:12)
[2024-02-06] MEDS: SODIUM CHLORIDE 1,000 ML IV SCH (18:26)
[2024-02-06] MEDS: lamoTRIgine 100 MG TABLET PO SCH (22:48)
[2024-02-06] MEDS: VALPROATE SODIUM 250 MG/5 ML UNIT DOSE CUP PO SCH (22:48)
[2024-02-06] MEDS: PIPERACILLIN/TAZOB 3.375 GM 3.375 GM in DEXTROSE 5%-WATER - 50 ML IVPB SCH (22:48)
[2024-02-06] MEDS: CHLORHEXIDINE GLUCONATE 4% CLEANSER FOR DECOLONIZATION TP SCH (22:48)
[2024-02-07] MEDS ORDERED: LEVOTHYROXINE NA 125 MCG TABLET (FP) GT SCH (07:00)
[2024-02-07 08:57] LABS: BILIRUBIN,TOTAL 0.3 mg/dL (0.2-1); TOT PROT 4.9 g/dl (6.4-8.2)
[2024-02-07 09:05] LABS: ALK PHOS 211 U/L (45-117)
[2024-02-07 09:23] LABS: ALBUMIN 1.5 g/dl (3.4-5.0); ANION GAP 17 mmol/L (4-13); BLOOD UREA NITROGEN 139.4 mg/dL (7-18); CALCIUM 7.4 mg/dL (8.5-10.1); CHLORIDE 119 mmol/L (98-107); CO2 13 mmol/L (21-32); CREATININE 4.6 mg/dL (0.55-1.3); GLUCOSE,RANDOM 140 mg/dL (74-106); POTASSIUM 3.6 mmol/L (3.5-5.1); SGOT/AST 47 U/L (15-37); SGPT/ALT 24 U/L (13-61); SODIUM 149 mmol/L (136-145)
[2024-02-07 10:24] LABS: HEMATOCRIT 31.2 % (35.4-49); HEMOGLOBIN 9.9 GM/dL (11.7-16.9); MCH 34.8 pg (25.7-33.7); MCHC 31.7 g/dl (32.0-35.9); MEAN CELL VOLUME 109.7 fl (80-96); MEAN PLT VOLUME 9.6 fl (7.5-11.1); PLATELET COUNT 178 10^3/uL (134-434); RBC 2.85 M/mm3 (4.00-5.60); RDW 20.8 % (11.9-15.9); WHITE BLOOD COUNT 18.6 K/mm3 (4.0-10.0)
[2024-02-07 11:07] LABS: PHOSPHOROUS 8.2 mg/dL (2.5-4.9)
[2024-02-07] MEDS ORDERED: MORPHINE SULFATE/0.9% NACL/PF 100 MG/100 ML BAG IVPB SCH ×2 (11:15→12:15)
[2024-02-07] MEDS: MORPHINE 100 MG/100 ML MG IVPB SCH (13:06)
[2024-02-07 14:13] VITALS: TEMP 96.2
[2024-02-09] MEDS: MORPHINE SULFATE/0.9% NACL/PF 100 MG/100 ML BAG IVPB SCH (02:59)
[2024-02-09] MEDS: ACETAMINOPHEN 325 MG TABLET (FP) PO ONE (12:46)
[2024-02-10] MEDS ORDERED: ARTIFICIAL TEARS OPHTHALMIC DROPS OU PRN (11:12)
[2024-02-10] MEDS: ARTIFICIAL TEARS OPHTHALMIC DROPS OU SCH (13:30)
[2024-02-10] MEDS: MINERAL OIL/PETROLATUM,WHITE 3.5 GM TUBE OU SCH (21:51)
[2024-02-12 20:43] VITALS: BP 40/28
[2024-02-13] MEDS: MORPHINE SULFATE/0.9% NACL/PF 100 MG/100 ML BAG IVPB SCH (08:57)
[2024-02-13 15:41] VITALS: RESP 8
[2024-02-14 08:02] VITALS: PULSE 52
[2024-02-14] MEDS ORDERED: MORPHINE SULFATE/0.9% NACL/PF 100 MG/100 ML BAG IVPB SCH (08:44)
== END 2024-02-14 11:47 | disposition expired | DRG 871 ==
LOC: JER 08:33 → JERBED 11:32 → J6S 02-03 13:49 → JICU 02-06 08:15 → J6S 02-08 21:25
PROVIDERS: ADMIT Internal Medicine; ATTEND Internal Medicine
DX: A41.89 Other specified sepsis (principal); E43 Unspecified severe protein-calorie malnutrition; R53.2 Functional quadriplegia; R65.21 Severe sepsis with septic shock; N17.9 Acute kidney failure, unspecified; T85.528A Displacement of other gastrointestinal prosthetic devices, implants and grafts, initial encounter; N39.0 Urinary tract infection, site not specified; E87.20 Acidosis, unspecified; R64 Cachexia; F79 Unspecified intellectual disabilities; R13.10 Dysphagia, unspecified; E03.9 Hypothyroidism, unspecified; N18.30 Chronic kidney disease, stage 3 unspecified; G40.909 Epilepsy, unspecified, not intractable, without status epilepticus; D50.9 Iron deficiency anemia, unspecified; B96.4 Proteus (mirabilis) (morganii) as the cause of diseases classified elsewhere; K59.00 Constipation, unspecified; L89.521 Pressure ulcer of left ankle, stage 1; L89.892 Pressure ulcer of other site, stage 2; Z68.23 Body mass index [BMI] 23.0-23.9, adult; Y83.8 Other surgical procedures as the cause of abnormal reaction of the patient, or of later complication, without mention of misadventure at the time of the procedure
CPT/HCPCS: 0241U-QW; 36415; 49440; 71045-TC-FY; 74230-TC-FY; 80053; 81003; 82803; 82962; 83605; 83735; 84100; 84484; 85025; 85027; 85610; 85730; 86850; 86900; 86901; 87040; 87086; 87186; 92611-GN; 93005; 93010; 99285-25; J0131; J3490